=== PATIENT | female | born 1960 | race Caucasian/White ===

== ENCOUNTER → 2024-04-29 13:41 | Outpatient (BNVA) | payer MEDICARE, OTHER, SELFPAY | DX: E06.3 Autoimmune thyroiditis (principal) | CPT/HCPCS: 80053; 80061; 84443; 84481; 85025 ==

== ENCOUNTER → 2024-09-16 11:51 | Outpatient (BNVA) | payer MEDICARE, OTHER, SELFPAY | DX: E06.3 Autoimmune thyroiditis (principal) | CPT/HCPCS: 80053; 84439; 84443; 84481 ==